=== PATIENT | male | born 1935 | race Caucasian/White ===

== ENCOUNTER → 2017-10-26 | Day surgery (SDC) | payer OTHER, MEDICARE ==
[~2017-10-26] VITALS: Ht 177.8 cm; Wt 81.6 kg
[~2017-10-26] MED LIST: ALPHAGAN P5 M1 OU; ARICEPT10 M1 PO; B-1100 MG PO; ELIQUIS5 M1 PO; ELOCON15 GM TOP; FISH OIL + D31 EACH PO; FLUDROCORTISON0.1 M1 PO; FOLIC ACID0.4 M1 PO; GINKGO BILOBA60 M3 PO; LATANOPROST2.5 ML OD; MELATIN3 MG PO; MESTINON60 M1 PO; MIDODRINE HCL10 M1 PO; MIRALAX17 G1 PO; NORTHERA200 MG PO; POTASSIUM CHLO10 ME5 PO; PROBIOTIC1 EACH PO; VITAMIN B-121000 MC3 PO; VITAMIN D2000 UNIT PO
--- NOTE | 2017-10-26 17:38 | Operative Report ---
Operative/Inv Procedure Report Surgery Date: 10/26/17 Name of Procedure: Pacemaker generator change Pre-Operative Diagnosis: Sick sinus syndrome and paroxysmal atrial fibrillation Symptomatic bradycardia Post-Operative Diagnosis: Same Estimated Blood Loss: scant Surgeon/Approver: Minh Rosen MD,David Reyna Anesthesia: local monitored anesthesi Operative/Procedure Note Note: After placement of monitoring lines the patient's left chest was prepped and draped in a sterile fashion. 1% lidocaine was used for local anesthetic. The previous incision was opened the capsule was entered and the generator was explanted. Testing of the atrial and ventricular leads showed good function and good capture thresholds. The leads were then connected to a [employer]tronic MRI compatible dual-chamber pacemaker. The pacemaker pocket was irrigated with antibiotic irrigation. The wound was closed in layers with running deep Vicryl suture followed by running Vicryl subcuticular suture. The patient tolerated the procedure well and was brought to recovery room in stable condition. CC: May COON,Maged Del Rosario
== END ==
LOC: STS 01:51
DX: Z45.010 Encounter for checking and testing of cardiac pacemaker pulse generator [battery] (principal); I49.5 Sick sinus syndrome; R00.1 Bradycardia, unspecified; I10 Essential (primary) hypertension; Z79.01 Long term (current) use of anticoagulants
CPT/HCPCS: 93005; 93010; C1785; J0690; J2250